=== PATIENT | female | born 2000 | race Hispanic/Latino ===

== ENCOUNTER → 2025-05-19 | Outpatient (CLI) | payer OTHER ==
[2025-05-19 08:56] LABS: IMMATURE GRANULOCYTE ABSOLUTE 0.01 K/uL (0-1); NUCLEATED RED BLOOD CELLS 0.0 % (0.0-0.19); PLATELET COUNT (AUTO) 262 K/uL (130-400); RED BLOOD CELL COUNT(AUTO) 4.69 MIL/uL (4.00-5.50); RED CELL DISTRIBUTION WIDTH 12.8 % (11.0-15.5); WHITE BLOOD COUNT (AUTO) 6.4 K/uL (4.8-10.8)
[2025-05-19 09:02] LABS: INR 1.11 (0.85-1.15)
[2025-05-19 09:28] LABS: ERYTHROCYTE SEDIMENTATION RATE 11 MM/HR (0-20)
[2025-05-20 11:13] LABS: RHEUMATOID ARTHRITIS FACTOR <10.0 IU/mL (<14.0)
== END | disposition home or self-care (01) ==
LOC: LAB 07:26
PROVIDERS: ATTEND Internal Medicine Nephrology
DX: R23.3 Spontaneous ecchymoses (principal); R21 Rash and other nonspecific skin eruption
CPT/HCPCS: 36415; 85025; 85384; 85610; 85651; 85730; 86038; 86200; 86215; 86235; 86431